=== PATIENT | female | born 1965 | race Two or more races ===

== ENCOUNTER 2023-05-27 02:27 | Emergency (ER) | payer MEDICAID, OTHER ==
[~2023-05-27] VITALS: Ht 157.5 cm; Wt 150.0 kg
[2023-05-27 03:02] LABS: Basophils # (auto) 0.1 10 ^3/uL (0-0.2); Basophils % (auto) 0.7 % (0.0-2.0); Eosinophils # (auto) 0 10 ^3/uL (0-0.8); Eosinophils % (auto) 0.6 % (0.0-7.0); Hematocrit 41.8 % (36.0-46.0); Lymphocytes # (auto) 1.9 10 ^3/uL (0.4-5.4); Lymphocytes % (auto) 25.2 % (10.0-50.0); Mean Corpuscular Hgb Conc. 33.5 g/dL (32.0-36.0); Mean Corpuscular Volume 89.4 fL (80.0-100.0); Monocytes # (auto) 0.5 10 ^3/uL (0-1.3); Neutrophils # (auto) 5.2 10 ^3/uL (1.6-8.6); Neutrophils % (auto) 67.5 % (37.0-80.0); Red Blood Cells 4.68 10^6/uL (4.0-5.20); Red Cell Distribution Width 12.8 % (11.8-14.3); White Blood Cell 7.7 10^3/uL (4.4-10.8)
[2023-05-27 03:19] LABS: Alanine Aminotransferase 22 U/L (7-40); Albumin 4.9 g/dL (3.2-4.8); Alkaline Phosphatase 70 U/L (46-116); Anion Gap 9 (5-15); Aspartate Aminotransferase 23 U/L (13-40); Blood Urea Nitrogen 12 mg/dL (9-23); Calcium 9.6 mg/dL (8.7-10.4); Carbon Dioxide 26 mmol/L (20-30); Chloride 108 mmol/L (98-107); Glucose 121 mg/dL (74-106); Lipase 42 U/L (12-53); Potassium 3.9 mmol/L (3.5-5.1); Sodium 143 mmol/L (136-145)
[2023-05-27 03:20] LABS: Bilirubin, Total 0.4 mg/dL (0.2-1.0); Total Protein 7.4 g/dL (5.7-8.2)
[2023-05-27 03:39] LABS: Urine Bacteria FEW /hpf (None Seen); Urine Blood Negative /uL (Negative); Urine Clarity Clear (Clear); Urine Color Yellow (Yellow); Urine Mucus FEW (None Seen); Urine Protein, UAD Negative (Negative); Urine Urobilinogen Normal (Negative); Urine WBC 1 /hpf (0 - 5)
[2023-05-27] MEDS ORDERED: ASPirin-EC 325mg tab PO ONE (08:15)
[2023-05-27] MEDS ORDERED: ONDANSETRON HCL 4 MG/2 ML VIAL IV ONE (08:15)
[2023-05-27 12:17] LABS: COVID19 ANTIGEN SOFIA FIA NEGATIVE (NEGATIVE)
[2023-05-27] MEDS ORDERED: ZOFR4T PO (14:57)
[2023-05-27 15:00] VITALS: BP 116/76; PULSE 80; RESP 16; TEMP 97.7; O2SAT 100
[2023-05-27] MEDS ORDERED: ONDANSETRON ODT 4 MG TAB ONE (15:05)
[2023-05-27] MEDS ORDERED: ONDANSETRON ODT 4 MG TAB PO ONE (15:15)
== END 2023-05-27 14:59 | disposition home or self-care (01) ==
LOC: ER 02:27
DX: E11.65 Type 2 diabetes mellitus with hyperglycemia (principal); I10 Essential (primary) hypertension; E78.5 Hyperlipidemia, unspecified; Z20.822 Contact with and (suspected) exposure to COVID-19; Z32.02 Encounter for pregnancy test, result negative
CPT/HCPCS: 36415; 71045; 74176; 80053; 81001; 81025; 83690; 84484; 85025; 87426; 93005; 99285; Q0162